=== PATIENT | female | born 1940 | race Caucasian/White ===

== ENCOUNTER 2021-01-25 00:35 | Day surgery (SDC) | payer MEDICARE, SELFPAY ==
[2021-01-12 13:41] VITALS: BMI 25.7
--- NOTE | 2021-01-24 14:23 | PM.HPGS ---
History of Present Illness History of Present Illness Consent: Risks, benefits, and alternatives have been discussed and questions answered. Patient agrees to proceed with procedure. Chief complaint: neoplasm screening Narrative: Giselle Menchaca is a 80 year old female referred for colon cancer screening. It has been 10 years since her last exam Review of Systems Review of Systems: All systems reviewed & are unremarkable except as noted in HPI and below PMFSH Past Medical History Medical History COPD (chronic obstructive pulmonary disease) Hypertension Surgical History Surgical History History of appendectomy History of hysterectomy Social History Social History Smoking packs per day: 1 Smoking cigarettes per day: 20.0 Years smoked: 20 Smoking pack-years: 20.00 Smoking status: Former smoker Tobacco type: cigarettes Alcohol intake: current Substance use type: does not use Meds Home Medications and Allergies Home Medications Medication Instructions Recorded Confirmed Type Co Q-10 200 mg PO DAILY 01/12/21 01/12/21 History PreserVision AREDS 1 tab-cap PO DAILY 01/12/21 01/12/21 History amlodipine 5 mg PO DAILY 01/12/21 01/12/21 History atorvastatin 10 mg PO DAILY 01/12/21 01/12/21 History celecoxib 200 mg PO DAILY 01/12/21 01/12/21 History fluticasone propion-salmeterol 2 ea INHALATION DAILY 01/12/21 01/12/21 History [Advair Diskus] losartan 100 mg PO DAILY 01/12/21 01/12/21 History mirtazapine 7.5 mg PO DAILY 01/12/21 01/12/21 History Allergies Allergy/AdvReac Type Severity Reaction Status Date / Time latex Allergy Unknown Rash Verified 01/25/21 08:09 Exam Resp: Auscultation: clear to auscultation bilaterally Cardio: Rate: regular rate Rhythm: regular rhythm GI: GI Palp: Yes Soft to palpation and No Tenderness to palpation present (GI) Assessment and Plan Assessment and plan (1) Colon cancer screening: Code(s): Z12.11 - Encounter for screening for malignant neoplasm of colon Status: Acute Assessment and Plan: Colonoscopy with possible biopsy or polypectomy or cautery or injection of substances.
--- NOTE | 2021-01-25 07:36 | P.PNAN_ITS ---
Anes - Initial Pre Proc Eval Procedure: Operation Date: 01/25/21 09:00 Proposed Procedures p Screening Colonoscopy - Curtis Markham MD Date/Time: 01/25/21 07:36 Surgeon: Curtis Markham MD Pre Op Diagnosis: neoplasm screening Patient Data Age: 80 Gender: F Height: 1.63 m Weight: 68.1 kg Allergies Allergy/AdvReac Type Severity Reaction Status Date / Time latex Allergy Unknown Rash Verified 01/25/21 08:09 Home Medications Medication Instructions Recorded Confirmed Type Co Q-10 200 mg PO DAILY 01/12/21 01/12/21 History PreserVision AREDS 1 tab-cap PO DAILY 01/12/21 01/12/21 History amlodipine 5 mg PO DAILY 01/12/21 01/12/21 History atorvastatin 10 mg PO DAILY 01/12/21 01/12/21 History celecoxib 200 mg PO DAILY 01/12/21 01/12/21 History fluticasone propion-salmeterol 2 ea INHALATION DAILY 01/12/21 01/12/21 History [Advair Diskus] losartan 100 mg PO DAILY 01/12/21 01/12/21 History mirtazapine 7.5 mg PO DAILY 01/12/21 01/12/21 History Patient hx anesthesia problems: none Family hx anesthesia problems: none Results Review: All pre-operative results and documents have been reviewed as part of the pre-operative evaluation. ON LICENSE OF [facility] Past Medical History Medical History (Updated 01/25/21 @ 07:36 by William Holguin DO) COPD (chronic obstructive pulmonary disease) Hypertension Surgical History Surgical History (Updated 01/25/21 @ 07:36 by William Holguin DO) History of appendectomy History of hysterectomy Social History Social History Smoking packs per day: 1 Smoking cigarettes per day: 20.0 Years smoked: 20 Smoking pack-years: 20.00 Smoking status: Former smoker Tobacco type: cigarettes Alcohol intake: current Substance use type: does not use Anes - Eval Final PreProcedure Day of Procedure 01/25/21 07:36 Patient weight: overweight Heart: regular rate and rhythm Lungs: clear to auscultation and normal air movement Airway: Mallampati scale class II Neurological: alert and oriented Last oral intake: >/= 8 hours ASA classification: III Emergent: no Anesthetic plan: proceed Anesthesia type and monitoring: general GIVS and standard monitoring Results Review: All pre-operative results and documents have been reviewed as part of the pre-operative evaluation. Informed Consent: The patient's anesthetic plan and its attendant risks and benefits were discussed with the patient/family/POA. Questions were solicited and answers provided to the satisfaction of the patient/family/POA.
[2021-01-25 08:16] VITALS: BP 140/74; PULSE 61; RESP 18; TEMP 36.8; O2SAT 97
[2021-01-25] MEDS: LACTATED RINGERS 1,000 ML 150 ML IV CONT (08:28)
[2021-01-25 09:15] VITALS: BP 149/74; PULSE 75; RESP 18; O2SAT 98
[2021-01-25 09:25] VITALS: BP 112/40; PULSE 56; RESP 18; O2SAT 98
[2021-01-25 09:35] VITALS: BP 146/93; PULSE 65; RESP 18; O2SAT 100
== END 2021-01-25 09:42 | disposition home or self-care (01) ==
PROVIDERS: PCP Internal Medicine; Visit Provider Internal Medicine Gastroenterology
PROC: 0DJD8ZZ Inspection of Lower Intestinal Tract, Via Natural or Artificial Opening Endoscopic (ICD-10-PCS; CPT 45378; principal; 2021-01-25 09:00)
DX: Z12.11 Encounter for screening for malignant neoplasm of colon (principal); K62.1 Rectal polyp; Z98.0 Intestinal bypass and anastomosis status; I10 Essential (primary) hypertension; J44.9 Chronic obstructive pulmonary disease, unspecified; Z87.891 Personal history of nicotine dependence
CPT/HCPCS: 45385; 88305; J2001; J2704; J7120